=== PATIENT | female | born 2000 | race Caucasian/White ===

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

== ENCOUNTER 2021-09-25 09:19 | Emergency (ER) | payer OTHER ==
[~2021-09-25] VITALS: Ht 167.6 cm; Wt 59.9 kg
[2021-09-25 09:29] VITALS: BP 162/80
[2021-09-25] MEDS ORDERED: ONDANSETRON PF 4 MG/2 ML VIAL. IVP ONE (09:45)
[2021-09-25] MEDS ORDERED: FAMOTIDINE 20 MG/2 ML VIAL IVP ONE (09:45)
[2021-09-25] MEDS ORDERED: IV NORMAL SALINE 1000ML BAG 1,000 ML IV SCH (09:45)
[2021-09-25] MEDS ORDERED: CONTRAST GIVEN. MC PRN (10:00)
[2021-09-25] MEDS ORDERED: IOHEXOL 300 MG/ML 100ML VIAL. IV ONE (10:00)
[2021-09-25 10:10] LABS: BASO % 1 % (0-3); EOS % 1 % (0-3); HEMATOCRIT 38.8 % (36.0-47.0); HEMOGLOBIN 13.7 g/dL (12.0-15.5); LYMPH # 1.5 x10^3/uL (1.0-4.8); LYMPH % 39 % (24-48); MEAN CORPUSCULAR HEMOGLOBIN 31 pg (25-35); MEAN CORPUSCULAR HGB CONC 35 g/dL (31-37); MEAN CORPUSCULAR VOLUME 87 fL (79-100); MONO # 0.4 x10^3/uL (0.0-1.1); MONO % 10 % (0-9); NEUT # 1.9 x10^3/uL (1.8-7.7); NEUT % 49 % (31-73); PLATELET COUNT 179 x10^3/uL (140-400); RED BLOOD COUNT 4.46 x10^6/uL (3.50-5.40); RED CELL DISTRIBUTION WIDTH 13.2 % (11.5-14.5); WHITE BLOOD COUNT 3.8 x10^3/uL (4.0-11.0)
--- NOTE | 2021-09-25 10:10 | PHYS DOC ---
General Adult EDM: Chief Complaint: ABDOMINAL PAIN HPI: HPI: Patient is a 21 year old female who presents with 2 months of daily vomiting, abdominal pain that she states feels like a charley horse and diarrhea x2-3 times a day. Patient states that she is adopted. She states she does not know her family history. She does have scars that are very large but healed all over her body from self-harm in the past with a razor blade. She states she is post to be on some medication for her depression anxiety but she has not. She states she is currently working. She states that finances and life stressors make her depression anxiety worse at times. She states that she does have thoughts from time to time of suicide but not currently this time. She is very tearful. She states she does not talk to her adoptive parents and lives with her boyfriend of 3 years. She states that her adopted parents are very rastafarian and her boyfriend is a felon. She denies any abuse, SI, HI, syncope, dizziness, headache, fever, neck pain, back pain, urinary symptoms, STD concern. Review of Systems: Review of Systems: Constitutional: Denies fever or chills. [] Eyes: Denies change in visual acuity. [] HENT: Denies nasal congestion or sore throat. [] Respiratory: Denies cough or shortness of breath. [] Cardiovascular: Denies chest pain or edema. [] GI: +abdominal pain, +nausea, +vomiting, denies bloody stools or +diarrhea. [] : Denies dysuria. [] Musculoskeletal: Denies back pain or joint pain. [] Integument: Denies rash. [] Neurologic: Denies headache, focal weakness or sensory changes. [] Endocrine: Denies polyuria or polydipsia. [] Lymphatic: Denies swollen glands. [] Psychiatric: +depression or +anxiety. [] Heart Score: C/O Chest Pain: No Current Medications: Current Medications Medications (Trade) Dose Ordered Sig/Laurence Start Time Stop Time Status Last Admin Dose Admin Famotidine (Pepcid Vial) 20 mg 1X ONCE 09/25/21 09:45 09/25/21 09:51 DC Info (CONTRAST GIVEN -- Rx MONITORING) 1 each PRN DAILY PRN 09/25/21 10:00 09/27/21 09:59 Iohexol (Omnipaque 300 Mg/ml) 75 ml 1X ONCE 09/25/21 10:00 09/25/21 10:01 Ondansetron HCl (Zofran) 4 mg 1X ONCE 09/25/21 09:45 09/25/21 09:51 DC Sodium Chloride 1,000 ml @ 1,000 mls/hr Q1H 09/25/21 09:45 09/25/21 10:44 Allergies: Allergies: Allergies Coded Allergies Type Severity Reaction Last Updated Verified amoxicillin Allergy Intermediate 11/06/18 Yes Physical Exam: PE: Constitutional: Well developed, well nourished, no acute distress, non-toxic appearance. [] HENT: Normocephalic, atraumatic, bilateral external ears normal, oropharynx moist, no oral exudates, nose normal. [] Eyes: PERRLA, EOMI, conjunctiva normal, no discharge. [] Neck: Normal range of motion, no tenderness, supple, no stridor. [] Cardiovascular:Heart rate regular rhythm, no murmur [] Lungs & Thorax: Bilateral breath sounds clear to auscultation [] Abdomen: Bowel sounds normal, soft, generalized tenderness, no masses, no pulsatile masses. [] Skin: Warm, dry, no erythema, no rash. [] Back: No tenderness, no CVA tenderness. [] Extremities: No tenderness, no cyanosis, no clubbing, ROM intact, no edema. [] Neurologic: Alert and oriented X 3, normal motor function, normal sensory func tion, no focal deficits noted. [] Psychologic: Affect normal, judgement normal, mood normal. Tearful [] EKG: EKG: [] Radiology/Procedures: Radiology/Procedures: [] Impression: [facility] [address] [place], [place] [id number] IMAGING REPORT Signed PATIENT: MADDIE ORTEGA ACCOUNT: [id number] : 2000 LOCATION: ER AGE: 21 SEX: F EXAM STATUS: REG ER ORD. PHYSICIAN: BEE HAYNES APRN REASON: abd pain with vomiting and diarrhea PROCEDURE: CT ABD PELV W/ IV CONTRST ONLY CT abdomen and pelvis with contrast PQRS statement: CT scans at this facility use dose reduction including either automated exposure control, iterative reconstructions, and /or weight based rad iation dosing via mA and kV modification when appropriate to reduce radiation dose to as low as reasonably achievable. HISTORY: Abdominal pain, vomiting and diarrhea. Contrast: 75 mL Isovue 370 intravenous contrast. Abdomen findings: Subcentimeter hypodense lesion of the spleen is indeterminate image 24 statistically most likely a hemangioma. Kidneys, adrenals, pancreas, liver and gallbladder are normal. The appendix is not identified. No obstruction or inflammation of the upper GI tract. There is no pericecal inflammation is evident. No abdominal fluid or adenopathy. Pelvis findings: Small volume of pelvic free fluid. 1 cm rim-enhancing hypodense lesion right ovary coronal image 26. Left ovary, uterus, bladder, rectum and bones are unremarkable. IMPRESSION: 1. Nonspecific 1 cm rim-enhancing hypodense lesion of the right ovary, most likely a follicle or ruptured cyst. Small volume of pelvic fluid is present. This could be further assessed with pelvic sonography. 2. The appendix was not visualized maybe surgically absent or is collapsed and obscured by surrounding bowel loops. There is no obstruction or inflammation of the GI tract evident. Electronically signed by: Hilda Jaramillo MD (09/25/2021 11:20 AM) [id number] DICTATED and SIGNED BY: HILDA JARAIMLLO MD DATE: 09/25/21 1113 Course & Med Decision Making: Course & Med Decision Making Pertinent Labs and Imaging studies reviewed. (See chart for details) See HPI. Alert and oriented x4. Speaks in full clear sentences. Ambulatory with steady gait. Skin pink warm and dry. Abdomen soft but with generalized tenderness. Afebrile. No CVA tenderness. Labs are within normal limits. CT abdomen pelvis shows no acute findings. She does need to follow-up with her circulation man and a manufacturing teacher. Shady with [facility] went in and spoke with the patient and gave her resources from [facility]. He also safety plan her. Patient is positive for marijuana use. Patient successfully p.o. challenged. I did replace potassium p.o. Patient states she is feeling better. She be discharged home. [] [place] Disclaimer: [place] Disclaimer: This electronic medical record was generated, in whole or in part, using a voice recognition dictation system. Departure Departure Impression: Primary Impression: Abdominal pain Qualified Codes: R10.84 - Generalized abdominal pain Additional Impressions: Nausea & vomiting Qualified Codes: R11.2 - Nausea with vomiting, unspecified Depression Qualified Codes: F32.A - Depression, unspecified Marijuana use Disposition: 01 HOME / SELF CARE / HOMELESS Condition: STABLE Referrals: FANNY GRISSOM MD (PCP) Patient Instructions: Depression, Adult, Gastritis, Adult, Marijuana Abuse and Chemical Dependency Additional Instructions: Follow-up with [facility] soon as possible. Slowly increase her diet. Drink plenty of fluids to stay hydrated. Take medication as prescribed. Scripts Ondansetron (ONDANSETRON ODT) 4 Mg Tab.rapdis 1 TAB PO PRN Q6-8HRS, #16 TAB Prov: BEE HAYNES APRN 09/25/21 Famotidine (PEPCID) 20 Mg Tablet 20 MG PO BID, #20 TAB Prov: BEE HAYNES [employer] 09/25/21 BEE HAYNES APRN September 25, 2021 10:10
[2021-09-25 10:17] LABS: CALCIUM 8.8 mg/dL (8.5-10.1); CREATININE 0.7 mg/dL (0.6-1.0); GFR 104.6; POTASSIUM 3.3 mmol/L (3.5-5.1)
[2021-09-25 10:24] LABS: ALBUMIN 4.4 g/dL (3.4-5.0); ALBUMIN/GLOBULIN RATIO 1.3 (1.0-1.7); TOTAL BILIRUBIN 1.9 mg/dL (0.2-1.0); TOTAL PROTEIN 7.8 g/dL (6.4-8.2)
[2021-09-25] MEDS ORDERED: POTASSIUM CHLORIDE 20 MEQ TABLET.ER. PO ONE (11:00)
[2021-09-25] MEDS ORDERED: IV NORMAL SALINE 1000ML BAG 1,000 ML IV ONE (11:00)
--- NOTE | 2021-09-25 11:22 | RAD ---
CT abdomen and pelvis with contrast PQRS statement: CT scans at this facility use dose reduction including either automated exposure cont rol, iterative reconstructions, and /or weight based radiation dosing via mA and kV modification when appropriate to reduce radiation dose to as low as reasonably achievable. HISTORY: Abdominal pain, vomiting and diarrhea. Contrast: 75 mL Isovue 370 intravenous contrast. Abdomen findings: Subcentimeter hypodense lesion of the spleen is indeterminate image 24 statisticall y most likely a hemangioma. Kidneys, adrenals, pancreas, liver and gallbladder are normal. The append ix is not identified. No obstruction or inflammation of the upper GI tract. There is no pericecal inf lammation is evident. No abdominal fluid or adenopathy. Pelvis findings: Small volume of pelvic free fluid. 1 cm rim-enhancing hypodense lesion right ovary c oronal image 26. Left ovary, uterus, bladder, rectum and bones are unremarkable. IMPRESSION: 1. Nonspecific 1 cm rim-enhancing hypodense lesion of the right ovary, most likely a follicle or rupt ured cyst. Small volume of pelvic fluid is present. This could be further assessed with pelvic sonogr aphy. 2. The appendix was not visualized maybe surgically absent or is collapsed and obscured by surroundin g bowel loops. There is no obstruction or inflammation of the GI tract evident. Electronically signed by: Aleksandar Jaramillo MD (09/25/2021 11:20 AM) [id number]
[2021-09-25] MEDS ORDERED: FAMO-63 PO (11:39)
[2021-09-25] MEDS ORDERED: ONDA4TAB12 PO (11:39)
[2021-09-25 12:04] LABS: BARBITURATES NEG (NEG); BENZODIAZEPINES NEG (NEG); CANNABINOIDS POS (NEG); COCAINE NEG (NEG); METHADONE NEG (NEG); OPIATES NEG (NEG); PHENCYCLIDINE NEG (NEG)
[2021-09-25 12:06] LABS: AMPHETAMINE/METHAMPHETAMINE NEG (NEG)
[2021-09-25 12:16] LABS: BACTERIA,URINE 0 /HPF (0-FEW); RBC,URINE 0 /HPF (0-2); WBC,URINE 0 /HPF (0-4)
== END 2021-09-25 13:02 | disposition home or self-care (01) ==
LOC: ER 09:19
DX: R10.84 Generalized abdominal pain (principal); R11.2 Nausea with vomiting, unspecified; F32.A Depression, unspecified; R19.7 Diarrhea, unspecified; F41.9 Anxiety disorder, unspecified; F12.90 Cannabis use, unspecified, uncomplicated; Z88.1 Allergy status to other antibiotic agents
CPT/HCPCS: 36415; 74177; 80053; 80307; 81001; 81025; 83690; 83735; 84702; 85025; 96361; 96374; 96375; 99285; J2405; J3490; J7030; Q9967

== ENCOUNTER 2021-09-29 09:48 | Emergency (ER) | payer SELFPAY ==
[~2021-09-29] VITALS: Ht 167.6 cm; Wt 59.0 kg
[~2021-09-29 09:48] MED LIST: FAMO-63 PO; ONDA4TAB12 PO
[2021-09-29 09:57] VITALS: BP 137/97
[2021-09-29] MEDS ORDERED: CETI10TA74 PO (10:12)
[2021-09-29] MEDS ORDERED: NEOM10SO7 EACH EAR (10:12)
[2021-09-29] MEDS ORDERED: TRIA10.8 NS (10:12)
--- NOTE | 2021-09-29 10:13 | PHYS DOC ---
Past Medical History Additional Past Medical Histor: covid Past Surgical History: No Surgical History Smoking Status: Current Every Day Smoker Alcohol Use: None General Adult EDM: Chief Complaint: EARACHE/EAR PAIN HPI: HPI: Patient is a 21 year old female who presents with 3 days of ear white drainage, bilateral ear pain, upper back teeth pain, nasal congestion. Patient has not taken any medication. Rates her discomfort an 8 out of 10. History of COVID, anxiety and smoking. Review of Systems: Review of Systems: Constitutional: Denies fever or chills. [] Eyes: Denies change in visual acuity. [] HENT: + nasal congestion or denies sore throat. + Ear pain, + tooth pain [] Respiratory: Denies cough or shortness of breath. [] Cardiovascular: Denies chest pain or edema. [] GI: Denies abdominal pain, nausea, vomiting, bloody stools or diarrhea. [] : Denies dysuria. [] Musculoskeletal: Denies back pain or joint pain. [] Integument: Denies rash. [] Neurologic: Denies headache, focal weakness or sensory changes. + Dizziness with movement of head [] Endocrine: Denies polyuria or polydipsia. [] Lymphatic: Denies swollen glands. [] Psychiatric: Denies depression or anxiety. [] Heart Score: C/O Chest Pain: No Allergies: Allergies: Allergies Coded Allergies Type Severity Reaction Last Updated Verified amoxicillin Allergy Intermediate 11/06/18 Yes Physical Exam: PE: Constitutional: Well developed, well nourished, no acute distress, non-toxic appearance. [] HENT: Normocephalic, atraumatic, bilateral external ears normal, oropharynx moist, no oral exudates, nose normal. Nasal congestion present without facial pain. Bilateral eardrums are intact and pearly white but ear canals are irritated and tender with exam. Patient states she has been digging in her ears to clean them out. [] Eyes: PERRLA, EOMI, conjunctiva normal, no discharge. [] Neck: Normal range of motion, no tenderness, supple, no stridor. [] Cardiovascular:Heart rate regular rhythm, no murmur [] Lungs & Thorax: Bilateral breath sounds clear to auscultation [] Abdomen: Bowel sounds normal, soft, no tenderness, no masses, no pulsatile masses. [] Skin: Warm, dry, no erythema, no rash. [] Back: No tenderness, no CVA tenderness. [] Extremities: No tenderness, no cyanosis, no clubbing, ROM intact, no edema. [] Neurologic: Alert and oriented X 3, normal motor function, normal sensory function, no focal deficits noted. [] Psychologic: Affect normal, judgement normal, mood normal. [] Current Patient Data: Vital Signs: Vital Signs Date Time Temp Pulse Resp B/P (MAP) Pulse Ox O2 Delivery O2 Flow Rate FiO2 09/29/21 09:57 97.4 85 16 137/97 (110) 99 Room Air 97.4 EKG: EKG: [] Radiology/Procedures: Radiology/Procedures: [] Course & Med Decision Making: Course & Med Decision Making Pertinent Labs and Imaging studies reviewed. (See chart for details) See HPI. Alert and oriented x4. Ambulatory steady gait. Speaks in full clear sentences. Patient states that when I saw her back 4 days ago she has not gotten any of the nausea medicine filled and she cannot until tomorrow. Patient is asking for dose of nausea medicine while she is here. Bilateral tympanic's are pearly white and intact with patient has been digging in her ears and so they are reddened and very tender in the ear canal with exam. Lungs are clear to all stational lobes. No facial pressure or pain with palpation to sinuses. Skin pink warm and dry. Vital signs within normal limits. [] Dragon Disclaimer: Dragon Disclaimer: This electronic medical record was generated, in whole or in part, using a voice recognition dictation system. Departure Departure Impression: Primary Impression: Vertigo Additional Impressions: Otitis externa Qualified Codes: H60.503 - Unspecified acute noninfective otitis externa, bilateral Nasal sinus congestion Disposition: HOME / SELF CARE / HOMELESS Condition: STABLE Referrals: FANNY GRISSOM MD (PCP) Patient Instructions: Allergic Rhinitis, Allergies, Generic, Otitis Externa, Vertigo Additional Instructions: Follow-up with your primary care provider. Get your prescriptions filled please. Take medication as prescribed and with food. Drink plenty of fluids to stay hydrated. If anything worsens you can always return to the emergency room. Scripts Triamcinolone Acetonide (NASACORT) 10.8 Ml [place] 2 SPRAY NS DAILY PRN for NASAL CONGESTION, #1 ML Prov: BEE HAYNES APRN 09/29/21 Cetirizine Hcl (ZYRTEC) 10 Mg Tablet 1 TAB PO DAILY, #30 TAB Prov: BEE HAYNES APRN 09/29/21 Neomycin/Polymyxin B Sulf/Hc (UERTDGSO-NCYZZXTNL-FX EAR SOLN) 10 Ml Solution 4 DROP EACH EAR TID for 5 Days, #10 ML 0 Refills Prov: BEE HAYNES APRN 09/29/21 BEE HAYNES APRN September 29, 2021 10:12
[2021-09-29] MEDS ORDERED: ONDANSETRON ODT 4 MG TAB.RAPDIS. PO ONE (10:15)
== END 2021-09-29 10:30 | disposition home or self-care (01) ==
LOC: ER 09:48
DX: H60.503 Unspecified acute noninfective otitis externa, bilateral (principal); R42 Dizziness and giddiness; R09.81 Nasal congestion; F17.200 Nicotine dependence, unspecified, uncomplicated; Z88.1 Allergy status to other antibiotic agents
CPT/HCPCS: 99283